=== PATIENT | female | born 1970 | race Caucasian/White ===

== ENCOUNTER 2016-11-29 02:03 | Emergency (ER) | payer MEDICAID ==
[2016-11-29 02:31] VITALS: BP 134/72
[2016-11-29] MEDS ORDERED: Acetaminophen/HYDROcodone 325-5 MG Tab PO ONE (03:13)
--- NOTE | 2016-11-29 04:19 | ER ---
DATE SEEN: 11/29/2016 CHIEF COMPLAINT: Nosebleed. HISTORY OF PRESENT ILLNESS: This is a 46-year-old female brought in from the [facility] by ambulance. Apparently, she went to the bathroom and fell and hit her nose and was bleeding from the nose for a few minutes. Did not pass out. However, nobody witnessed the fall. She also complains of hemoptysis, but denies any headache. Pain is mostly on the nose area. PAST MEDICAL HISTORY: She has an extensive past medical history that includes, but is not limited to, anxiety, depression, chronic back pain, chronic shortness of breath, panic disorder, hallucinations, and low back pain. ALLERGIES AND MEDICATIONS: Updated. SOCIAL HISTORY: Does not smoke. She had been drinking tonight. PHYSICAL EXAMINATION: GENERAL: She is alert with strong odor of alcohol about her. VITAL SIGNS: Her temp is 97.2, blood pressure is 134/72, pulse is 92, and respiratory rate is 20. HEAD: Normocephalic. There is deformity of the nose noted. No epistaxis actively. EYES: Pupils are dilated, but reactive to light. NECK: Notes no thyromegaly or lymphadenopathy. CHEST: Clear breath sounds. CARDIOVASCULAR: Normal. MENTAL STATUS: She is alert, oriented x3, but obviously intoxicated. LABORATORY DATA: White cell count 14.8, INR 1.5, alcohol level 0.24. CT head is a nasal fracture. IMPRESSION: Nasal fracture. PLAN: The patient was given hydrocodone to use 1 tablet q.i.d. p.r.n. I discussed that she will have to see her PCP and ENT physician to have the fracture evaluated and treated, initially brought some problems being discharged, but I did eventually explain to her and was able to discharge her home in the company of her boyfriend. ED COURSE: Patient was admant to have her records,and be nose be "fixed". Multiple attempts by myself and the nurse to explain thing to her were fruitless. We eventually had to call Law enforcement to escort her out of the ED TIME SEEN: 2 a.m. /[id number] TYLER/SAMI THORNTON
== END 2016-11-29 02:35 | disposition home or self-care (01) ==
LOC: FB.ED 02:03
DX: S02.2XXA Fracture of nasal bones, initial encounter for closed fracture (principal); W18.30XA Fall on same level, unspecified, initial encounter; F10.120 Alcohol abuse with intoxication, uncomplicated; R04.2 Hemoptysis; F41.9 Anxiety disorder, unspecified; F32.9 Major depressive disorder, single episode, unspecified; R06.02 Shortness of breath; F41.0 Panic disorder [episodic paroxysmal anxiety]; R44.3 Hallucinations, unspecified; M54.5 Low back pain
CPT/HCPCS: 36415; 70450; 80048; 85025; 85610; 99284; A9270; G0480